=== PATIENT | male | born 1975 | race Caucasian/White ===

== ENCOUNTER → 2023-08-02 16:07 | Outpatient (CLI) | payer MEDICAID, SELFPAY ==
--- NOTE | 2023-08-02 16:14 | XR_ITS ---
PROCEDURE INFORMATION: Exam: XR Right Foot Complete; Alignment Exam date and time: 08/02/2023 4:35 PM Age: 48 years old Clinical indication: Pain; Foot; Right; Additional info: Foot pain, deformity on medial side present for 20 years per PT. TECHNIQUE: Imaging protocol: Radiologic exam of the right foot. Views: 3 or more views. COMPARISON: No relevant prior studies available. 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 Pes planus deformity of the foot. There is no evidence of acute fracture in any of the visualized osseous structures.. There is no evidence of malalignment or dislocation of any visualized joint. Soft tissues: Normal. IMPRESSION: 1. 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 2. There is no evidence of acute fracture in any of the visualized osseous structures.. 3. There is no evidence of malalignment or dislocation of any visualized joint.
--- NOTE | 2023-08-02 16:14 | XR_ITS ---
PROCEDURE INFORMATION: Exam: XR Left Foot Complete; Alignment Exam date and time: 08/02/2023 4:35 PM Age: 48 years old Clinical indication: Pain; Foot; Left; Additional info: Foot pain TECHNIQUE: Imaging protocol: Radiologic exam of the left foot. Views: 3 or more views. COMPARISON: No relevant prior studies available. FINDINGS: Bones/joints: Hallux valgus deformity of the great toe. Valgus angulation of the distal phalanx of the great toe soft tissue swelling medial to the 1st metatarsal-phalangeal joint. There is no evidence of acute fracture in any of the visualized osseous structures.. There is no evidence of malalignment or dislocation of any visualized joint. Soft tissues: See Bones/joints finding. IMPRESSION: 1. There is no evidence of acute fracture in any of the visualized osseous structures.. 2. There is no evidence of malalignment or dislocation of any visualized joint.
== END ==
PROVIDERS: PCP Nurse Practitioner Family; Visit Provider Nurse Practitioner Family
DX: M79.671 Pain in right foot (principal); M79.672 Pain in left foot
CPT/HCPCS: 73630

== ENCOUNTER → 2023-08-03 14:45 | Outpatient (CLI) | payer MEDICAID, SELFPAY ==
--- NOTE | 2023-08-03 14:48 | XR_ITS ---
FINAL REPORT CLINICAL HISTORY: ankle pain FINDINGS: Left ankle Three views were obtained. There is no acute fracture or dislocation. The joint spaces appear normal. There is mild soft tissue swelling. An os trigonum is identified. There is a small plantar spur. IMPRESSION: No acute process. Reviewed, Interpreted and Dictated by Mello Shaw MD Transcribed by Jenny Lao Authenticated and [facility]
--- NOTE | 2023-08-03 14:48 | XR_ITS ---
FINAL REPORT CLINICAL HISTORY: ankle pain FINDINGS: Right ankle Three views were obtained. There is no acute fracture or dislocation. The joint spaces appear normal. There is soft tissue swelling. Moderate plantar spur is identified. Note is made of a pes planus deformity. IMPRESSION: No acute process. Reviewed, Interpreted and Dictated by Mello Shaw MD Transcribed by Jenny Lao Authenticated and [facility]
== END ==
PROVIDERS: PCP Nurse Practitioner Family; Visit Provider Nurse Practitioner Family
DX: M25.571 Pain in right ankle and joints of right foot (principal); M25.572 Pain in left ankle and joints of left foot
CPT/HCPCS: 73610

== ENCOUNTER → 2023-08-06 23:21 | Outpatient (CLI) | payer MEDICAID, SELFPAY ==
[2023-08-06 18:27] LABS: Chloride 106 mmol/L (98-107); Sodium 147 mmol/L (136-145)
[2023-08-06 18:28] LABS: Potassium 4.4 mmoL/L (3.5-5.1)
[2023-08-06 18:30] LABS: Alanine Aminotransferase 66 U/L (12-78); Alkaline Phosphatase 67 U/L (38-126); Aspartate Amino Transferase 66 U/L (17-59); Bilirubin,Total 1.2 mg/dl (0.2-1.3); Blood Urea Nitrogen 11 mg/dl (9-20); Cholesterol 138 mg/dl (140-200); Estimated Glomerular Filt Rate 143 ml/min (>60); GFR (African American) 173 ML/MIN (>60); Triglycerides 126 mg/dl (30-150); VLDL Cholesterol 25 mg/dL (0-40)
[2023-08-06 18:31] LABS: Albumin Level 4.8 g/dl (3.5-5.0); Albumin/Globulin Ratio 1.3 (1.1-1.8); Calcium 10.3 mg/dl (8.4-10.2); Chol/HDL Ratio 4.1 (1-3.5); Globulin 3.7 g/dL (1.3-3.2); Glucose 82 mg/dl (74-100); HDL Cholesterol 34 mg/dl (40-60); Total Protein,Serum 8.5 g/dl (6.3-8.2)
[2023-08-06 18:39] LABS: Basophils % 0.4 % (0.1-2.0); Eosinophils # 0.1 K/mm3 (0.0-0.4); Hematocrit 53.8 % (42.0-52.0); Hemoglobin 17.6 g/dL (14.1-18.0); Lymphocytes # 1.8 K/mm3 (0.7-4.5); Lymphocytes % 30.4 % (10-50); Mean Corpuscular HGB Conc 32.7 g/dL (31.8-35.4); Mean Corpuscular Volume 94.8 fl (80-94); Monocytes # 0.4 K/mm3 (0.1-1.0); Neutrophils # 3.8 K/mm3 (1.8-7.8); Neutrophils % 62.2 % (37.0-80.0); Platelet Count 267 K/mm3 (142-424); Red Blood Count 5.67 M/mm3 (4.60-6.20); Red Cell Distribution Width 12.9 % (11.5-17.5); White Blood Count 6.1 K/mm3 (4.8-10.8)
[2023-08-06 18:42] LABS: Direct LDL Cholesterol 70.28 mg/dL (100-129)
[2023-08-06 18:49] LABS: T4 (Thyroxine) 17.4 ug/dl (5.53-11.0)
[2023-08-06 19:02] LABS: Thyroid Stimulating Hormone 1.55 uIU/mL (0.465-4.68)
[2023-08-06 19:04] LABS: Anion Gap 20.4 mEq/L (5-15); Carbon Dioxide 25 mmol/L (22.0-30.0)
[2023-08-08 11:33] LABS: HIV Screen 4th Generation wRfx Non Reactive (Non Reactive)
[2023-08-12 21:42] LABS: HCV Genotype Charge YES; Hepatitis C Genotype 1a (.)
[2023-08-22 08:41] LABS: Hep A Ab, Total Negative; Hepatitis B Surface Antigen Negative
[2023-08-22 08:42] LABS: Hep B Core Ab, Total Negative
[2023-08-22 08:43] LABS: Hep B Surface Ab, Qual Non Reactive; Hepatitis C Antibody Reactive
[2023-08-22 08:44] LABS: Fibrosis Score 0.85
[2023-08-22 08:45] LABS: Alpha 2-Macroglobulins, Qn 443; Haptoglobin 148; Necroinflammat Activity Score 0.56
[2023-08-22 08:46] LABS: Apolipoprotein A-1 112; Bilirubin, Total 0.6; GGT 286
[2023-08-22 08:47] LABS: ALT (SGPT) P5P 60
== END ==
LOC: LAB.DROPOF 23:21
PROVIDERS: PCP Nurse Practitioner Family; Visit Provider Nurse Practitioner Family
DX: K75.9 Inflammatory liver disease, unspecified (principal); Z11.4 Encounter for screening for human immunodeficiency virus [HIV]
CPT/HCPCS: 80053; 80061; 81596; 84436; 84443; 85025; 86703; 86704; 86706; 86708; 87340; 87380; 87522; 87902; G0432

== ENCOUNTER → 2023-11-02 13:23 | Outpatient (CLI) | payer MEDICAID, SELFPAY ==
--- NOTE | 2023-11-02 13:23 | MR_ITS ---
FINAL REPORT CLINICAL HISTORY: right foot pain FINDINGS: Multiplanar MR imaging of the right foot was performed without contrast there is abnormal edema in the calcaneocuboid joint. There are mild hypertrophic changes at the calcaneocuboid joint. There is an osteochondral lesion in the medial talar dome measuring 8 mm. The flexor and extensor tendons are intact. The musculature is intact. The plantar aponeurosis is intact. No soft tissue mass or cyst is identified. IMPRESSION: Abnormal edema in the calcaneocuboid joint with mild hypertrophic changes may reflect underlying ligamentous instability. Large osteochondral lesion in the medial talar dome. Reviewed, Interpreted and Dictated by Mello Shaw MD Transcribed by Asher Chisholm Authenticated and [facility]
== END ==
PROVIDERS: PCP Nurse Practitioner Family; Visit Provider Podiatrist
DX: M21.41 Flat foot [pes planus] (acquired), right foot (principal)
CPT/HCPCS: 73718